=== PATIENT | female | born 1990 | race Caucasian/White ===

== ENCOUNTER 2021-07-28 14:33 | Outpatient (REF) | payer OTHER, SELFPAY ==
[2021-07-28 22:29] LABS: Calculated LDL 102 mg/dL (<100); Cholesterol 172 mg/dL (<200); HDL Cholesterol 64 mg/dL (40-60); TSH (W/Ref FT4) 1.12 uIU/mL (0.36-3.74); Triglyceride 33 mg/dL (<150)
[2021-07-28 22:39] LABS: Vitamin D 25 Total 28.3 ng/mL (30-100)
== END 2021-07-28 14:34 | disposition home or self-care (01) ==
LOC: NCHCN 14:33
PROVIDERS: PCP Family Medicine; Visit Provider Nurse Practitioner Community Health
DX: Z13.220 Encounter for screening for lipoid disorders (principal); Z83.49 Family history of other endocrine, nutritional and metabolic diseases; Z86.39 Personal history of other endocrine, nutritional and metabolic disease
CPT/HCPCS: 80061; 82306; 84443

== ENCOUNTER 2022-11-30 15:30 | Outpatient (REF) | payer MEDICAID, SELFPAY ==
[2022-11-30 21:29] LABS: ESR 24 mm/hr (0-20)
[2022-11-30 21:54] LABS: Vitamin D 25 Total 23.7 ng/mL (30-100)
[2022-11-30 22:08] LABS: Folate 10.5 ng/mL (8.6-20.0); Vitamin B12 310 pg/mL (193-986)
[2022-11-30 22:18] LABS: C-Reactive Protein 0.21 mg/dL (0.0-0.3)
== END 2022-11-30 15:31 | disposition home or self-care (01) ==
LOC: NCHCN 15:30
PROVIDERS: PCP Family Medicine; Visit Provider Nurse Practitioner Family
DX: E66.9 Obesity, unspecified (principal); M25.551 Pain in right hip; M54.9 Dorsalgia, unspecified
CPT/HCPCS: 82306; 85652; 82607; 82746; 84443; 86140

== ENCOUNTER 2025-07-23 14:46 | Outpatient (REF) | payer MEDICAID, SELFPAY ==
[2025-07-25 10:34] LABS: Rubella IgG Ab (UVM) Positive (See Note)
== END 2025-07-23 14:47 | disposition home or self-care (01) ==
LOC: NCHCN 14:46
PROVIDERS: PCP Family Medicine; Visit Provider Nurse Practitioner Family
DX: Z23 Encounter for immunization (principal)
CPT/HCPCS: 86735; 86762; 86765